=== PATIENT | male | born 1940 | race Caucasian/White ===

== ENCOUNTER 2021-10-10 08:33 | Inpatient (IN) | payer MEDICARE, BC, SELFPAY ==
[2021-10-10] VITALS (11 sets, daily range): BP systolic 70–110; BP diastolic 55–77; PULSE 76–102; RESP 14–24; TEMP 36.1–36.6; O2SAT 96–100; BMI 29.2
--- NOTE | ~2021-10-10 | CT_ITS ---
EXAMINATION: CT brain wo con DATE: 10/10/2021 09:15 INDICATION: Status post fall. Headache. TECHNIQUE: Computed tomography (CT) of the head was performed without intravenous contrast. The dose- length product was 681.00 mGy-cm. Automated exposure control and iterative reconstruction technique w ere employed. COMPARISON: None FINDINGS: Generalized atrophy. There are scattered moderate periventricular and subcortical white mat ter changes, most likely related to small vessel ischemic disease (microangiopathy). No ventriculomeg dann or midline shift. Basilar cisterns are patent. No acute intracranial hemorrhage, infarction, mass or mass effect. There is intracranial atherosclerosis. Paranasal sinuses and mastoids are pneumatize d. IMPRESSION: 1. No acute intracranial abnormality. 2: Chronic age-related findings. Reviewed, dictated and finalized at location A. RBOARD MACHINE OPERATOR
--- NOTE | ~2021-10-10 | US_ITS ---
EXAMINATION:US venous doppler LE BI INDICATION:Swollen legs with redness and tenderness TECHNIQUE: Multiple grayscale, color flow and Doppler images of the right and left lower extremity de ep venous systems were obtained and reviewed. COMPARISON:No prior studies for comparison. FINDINGS: The common femoral, superficial femoral and popliteal veins demonstrate normal respiratory variation, augmentation and compressibility. Color flow is also seen within the posterior tibial, pe roneal, greater saphenous and profunda veins. IMPRESSION: 1: No lower extremity deep venous thrombosis. Reviewed, dictated and finalized at location A. T MAKER
--- NOTE | ~2021-10-10 | XR_ITS ---
XR chest 2V 10/10/2021 09:02 Indication: Weakness and dyspnea Procedure: 2 view chest Comparison: 07/06/2009 Findings: Cardiomegaly. Large hiatal hernia. No focal air space disease, pulmonary edema, pleural eff usion or suspected pneumothorax. There is a cerclage wire transfixing the left mid clavicle with heal ed fracture. Impression: 1: No acute cardiopulmonary disease. 2: Cardiomegaly. Reviewed, dictated and finalized at location A. PICKER Impression: 1: No acute cardiopulmonary disease. 2: Cardiomegaly.
--- NOTE | ~2021-10-10 | CT_ITS ---
EXAMINATION: CT abdomen pelvis wo con DATE: 10/10/2021 11:51 INDICATION: Leukocytosis. Elevated lactic acid. Weakness. Loss of appetite. TECHNIQUE: Computed tomography (CT) of the abdomen and pelvis was performed without intravenous contr ast. The dose-length product was 867.34 mGy-cm. Automated exposure control and iterative reconstructi on technique were employed. COMPARISON: None. FINDINGS: There is dependent atelectasis. Cardiomegaly. There is a large hiatal hernia. No significan t pleural or pericardial effusion. There is atherosclerosis of the aorta without aneurysm. There are pancreatic calcifications, consistent with chronic pancreatitis. No lymphadenopathy. Status post chol ecystectomy. The liver, spleen, adrenal glands and kidneys are unremarkable. Nonobstructive bowel gas pattern. Col onic diverticulosis without evidence for diverticulitis. Normal appendix. No abnormal free fluid or f ree air. Enlarged prostate gland. Moderate lumbar spondylosis. IMPRESSION: 1. No acute abdominal abnormality. 2: Chronic pancreatitis. 3: Large hiatal hernia. 4: Enlarged prostate gland. Reviewed, dictated and finalized at location A. DING DISMANTLER
--- NOTE | 2021-10-10 08:46 | ECG_ITS ---
Measurements Intervals [place] Rate: 80 P: AR: 0 QRS: 50 QRSD: 166 T: 15 QT: 391 QTc: 453 Interpretive Statements ATRIAL FIBRILLATION RIGHT BUNDLE BRANCH BLOCK ABNORMAL ECG Electronically Signed On 10-10-2021 18:06:55 FURNACE CONVERTER by Florian Kang D.O.
[2021-10-10] MEDS: SODIUM CHLORIDE 0.9% IV 500 ML 999 ML IV CONT (09:18)
--- NOTE | 2021-10-10 09:37 | PC.NURSE ---
patient asked for Urine sample, will attempt again. Patient states that he has not had any fluids for over 24 hours and declines straight cath.
[2021-10-10 09:40] LABS: Basophils Percent Auto 0.1 % (0.2-1.2); Eosinophils Percent Auto 0.1 % (0-4.4); Hematocrit 39.5 % (42.0-52.0); Hemoglobin 13.2 g/dL (14.0-18.0); Immature Granulocyte Absolute 0.15 K/mm3 (0.00-0.031); Immature Granulocyte Percent A 0.9 % (0-0.5); Lymphocytes Absolute Auto 0.36 K/mm3 (0.9-3.2); Lymphocytes Percent Auto 2.1 % (18.3-44.2); Mean Corpuscular HGB Conc 33.4 g/dl (32-36); Mean Corpuscular Volume 92.7 fl (80-100); Mean Platelet Volume 10.5 fl (7.4-10.4); Monocytes Absolute Auto 0.7 K/mm3 (0.1-0.6); Monocytes Percent Auto 4.3 % (2.6-8.5); Neutrophils Absolute Auto 15.9 K/mm3 (1.3-6.7); Neutrophils Percent Auto 92.5 % (45.5-73.1); Platelet Count Result 133 k/mm3 (150-375); Red Blood Count 4.26 M/mm3 (4.6-6.20); Red Cell Distribution Width 14.6 % (11.5-14.5); White Blood Count 17.1 K/mm3 (4.5-10.0)
[2021-10-10 09:47] LABS: Alanine Aminotransferase 20 U/L (4-50); Albumin Level 3.4 g/dL (3.5-5.1); Alkaline Phosphatase 81 U/L (38-126); Anion Gap 7 mmol/L (8-16); Aspartate Amino Transferase 29 U/L (17-59); Bilirubin,Total 1.9 mg/dL (0.2-1.3); Blood Urea Nitrogen 24 mg/dL (9-20); Calcium 10.3 mg/dL (8.4-10.2); Carbon Dioxide 25 mmol/L (22-30); Chloride 105 mmol/L (98-107); Estimated CRCL calculation 34 ml/min; Estimated Glomerular Filt Rate 36; Glucose 241 mg/dL (65-110); Potassium 4.5 mmol/L (3.4-5.0); Sodium 137 mmol/L (137-145)
[2021-10-10 09:50] LABS: INR 2.8; Prothrombin Time 29.1 Seconds (11.1-14.7)
[2021-10-10 09:51] LABS: Partial Thromboplastin Time 45.8 SECONDS (22.3-36.8)
[2021-10-10 09:55] LABS: NT Pro B Type Natriuretic Pept 2780 pg/mL (5-100)
[2021-10-10 09:58] LABS: Troponin I < 0.012 ng/mL (0.000-0.034)
[2021-10-10] MEDS: SODIUM CHLORIDE 0.9% IV 1,000 ML 999 ML IV CONT (10:18)
[2021-10-10 10:20] LABS: Lactic Acid Reflex 3.5 mmol/L (0.7-2.1)
[2021-10-10 11:09] LABS: Add Urine Microscopic? YES; Appearance Urine Clear (Clear); Bilirubin Urine Negative (Negative); Blood Urine 1+ (Negative); Color Urine Amber (Yellow); Glucose Urine UA 1+ mg/dL (Negative); Ketones Urine Trace mg/dL (Negative); Leukocyte Esterase Ur Negative LEU/UL (Negative); Mucus Urine Rare /lpf; Nitrate Urine Negative (Negative); Protein Urine Negative (Negative); RBC Urine 0-2 /hpf (0-2); Specific Grav Ur 1.018 (1.001-1.035); Squamous Epithelial Cell Urine Rare /hpf (Few)
--- NOTE | 2021-10-10 11:18 | ED.WEAKNESS ---
HPI - Weakness General Chief complaint: Weakness Stated complaint: gen. weakness/mult falls since yesterday Time Seen by Provider: 10/10/21 08:40 Source: patient History of Present Illness HPI Narrative: Patient presents with weakness and falls. Ports symptoms been present for the past 1 to 2 days and appear to be getting worse reports he has not had much of an appetite has not been eating or drinking either is concerned about the symptoms so he came to the ER for evaluation. Denying any focal areas of pain such as headache, chest pain or abdominal pain. Denies any cough or shortness of renard, denies any extremity pain. Denies any nausea or vomiting or diarrhea. He denies any urinary symptoms. Related Data Allergies Allergy/AdvReac Type Severity Reaction Status Date / Time No Known Drug Allergies Allergy Verified 10/10/21 08:49 Review of Systems Review of Systems: CONSTITUTIONAL: Denies fever, chills, or sweats. EYES: Denies visual changes, redness, or discharge. ENT: Denies rhinorrhea, congestion, sore throat, or otalgia. CARDIOVASCULAR: Denies chest pain, palpitations, or edema. RESPIRATORY: Denies cough or dyspnea. GASTROINTESTINAL: Denies abdominal pain, nausea, vomiting, or diarrhea. GENITOURINARY: Denies dysuria or hematuria. SKIN: Denies rash or itching. MUSCULOSKELETAL: Denies back pain, joint pain, or myalgia. NEUROLOGIC: Denies headache, numbness, dizziness, or focal weakness. PSYCHIATRIC: Denies anxiety or depression. All systems reviewed & are unremarkable except as noted in HPI and below [facility] Surgical History Surgical History (Updated 10/10/21 @ 12:55 by Xavier Duke MD) History of total right knee replacement Social History Social History (Updated 10/10/21 @ 12:56 by Xavier Duke MD) Social History: Lives alone. Retired from [employer]. Full Code. Living arrangements: alone Course Reevaluation(s) Reevaluation #1: Patient is resting comfortably blood pressure is improving heart rate improved. Primary concern is for sepsis however there is no clear source of infection patient started broad-spectrum antibiotics. Discussed hospitalist team will admit for further evaluation. Patient is comfortable with inpatient plan. Date: 10/10/21 Time: 11:48 Vital Signs Vital signs: Vital Signs Temperature 36.6 C 10/10/21 08:32 Pulse Rate 102 H 10/10/21 08:32 Respiratory Rate 20 10/10/21 08:32 Blood Pressure 82/68 L 10/10/21 08:32 Pulse Oximetry 100 10/10/21 08:32 Temperature 36.6 C 10/10/21 08:32 Pulse Rate 91 10/10/21 12:44 Respiratory Rate 17 10/10/21 12:44 Blood Pressure 110/75 10/10/21 12:44 Pulse Oximetry 98 10/10/21 12:44 MDM - Weakness MDM Narrative Medical decision making narrative: H&P as above, vss, pt looks clinically well, exam reassuring, labs with leukocytosis elevated lactate and elevation in creatinine, img CT head and chest x-ray were clinically unremarkable CT of the abdomen ordered request of the hospitalist team, patient was started on Zosyn for broad-spectrum antibiotics. Patient not describe respiratory infectious symptoms denies abdominal pain and UA is clear. Given his lab abnormalities and initial hypotension on presentation he would benefit from further evaluation and monitoring. Patient accepted by the hospitalist team. Patient is comfortable inpatient plan. Lab Data Result diagrams: 10/10/21 09:21 10/10/21 09:21 Labs: Lab Results 10/10/21 10/10/21 10/10/21 Range/Units 09:21 09:21 09:21 WBC 17.1 H (4.5-10.0) K/mm3 RBC 4.26 L (4.6-6.20) M/mm3 Hgb 13.2 L (14.0-18.0) g/dL Hct 39.5 L (42.0-52.0) % MCV 92.7 (80-100) fl MCH 31.0 (26-34) pg MCHC 33.4 (32-36) g/dl RDW 14.6 H (11.5-14.5) % Plt Count 133 L (150-375) k/mm3 MPV 10.5 H (7.4-10.4) fl Immature Gran % (Auto) 0.9 H (0-0.5) % Neut % (Auto) 92.5 H (45.5-73.1) % Lymph % (Auto) 2
--- NOTE | 2021-10-10 12:02 | PM.IMHP ---
H&P: HPI History of Present Illness Date/Time: 10/10/21 12:02 Chief Complaint: Falling at home Narrative: This 81-year-old gentleman was in his usual state of health until last night, October 09. When he would try to get up he would fall. He felt very fatigued. He fell multiple times. He denied injury or loss of consciousness or dizziness. He said his legs feel weak. He denied fevers chills or sweats. He has noted some redness in his left lower leg compared to his right leg during the past few days. He was waiting for the winter weather to subside prior to venturing to his doctor. He had similar problems in the past with the right leg. He saw branch operations specialist and with wound care and antibiotics it resolved. He notes that he has bad teeth and has always been a fairly light eater. He has lost 2 to 5 lb recently. No pain with chewing. No facial swelling. No tender gums. No difficulty opening his mouth her sickness tongue out. In August 2021 he had an encounter with a previously female for oral sex. He states that he bled from his penile shaft for a few weeks after the encounter. I think she circumcised me. He denied dysuria or hematuria. However he did have sensitivity and pain when touching the penis or when it rubbed against his underwear for approximately 1 month. There is now a dark spot on the left side of the penile serra. He gets his medications from [facility]. He says he takes 1 medicine twice daily for his legs, to medicines daily for blood pressure, and Xarelto daily for atrial fibrillation. He denies any prior history of type 2 diabetes or kidney disease, but was told several years ago that he was prediabetic. Review of Systems Review of Systems: All systems reviewed & are unremarkable except as noted in HPI and below [facility] Past Medical History Medical History (Updated 10/10/21 @ 17:15 by Xavier Duke MD) Fracture, clavicle closed, shaft age 13 with ORIF Paroxysmal atrial fibrillation Type 2 diabetes mellitus with hyperglycemia Surgical History Surgical History (Updated 10/10/21 @ 17:17 by Xavier Duke MD) H/O cardiac catheterization 1998 negative ([place]) History of total right knee replacement Hx laparoscopic cholecystectomy 2008 Family History Family History (Updated 10/10/21 @ 17:18 by Xavier Duke MD) Father Acute myocardial infarction Mother Diabetes mellitus Social History Social History (Updated 10/10/21 @ 17:20 by Xavier Duke MD) Social History: Lives alone. Retired from [employer]. Full Code. Smoking packs per day: 1 Smoking cigarettes per day: 20.0 Years smoked: 30 Smoking pack-years: 30.00 Smoking status: Former smoker Alcohol intake: former Alcohol use details: quit in 02/2021, was 2-4 beers per day Substance use: never Living arrangements: alone Spiritual care concerns: No Meds Home Medications and Allergies Allergies Allergy/AdvReac Type Severity Reaction Status Date / Time No Known Drug Allergies Allergy Verified 10/10/21 08:49 Vital Signs Vital Signs - 24 hr 10/10/21 08:32 10/10/21 08:50 10/10/21 09:14 Temperature 98 F Pulse Rate 102 H 91 82 Respiratory Rate 20 20 Blood Pressure 82/68 L 70/57 L Pulse Oximetry 100 100 10/10/21 09:33 10/10/21 11:00 Temperature Pulse Rate 86 76 Respiratory Rate 21 H 24 H Blood Pressure 96/77 L 101/72 Pulse Oximetry 98 99 Exam Narrative: HEENT: PERRL, sclerae nonicteric, pharyngeal mucosa pink and intact NECK: No JVD, adenopathy, or thyromegaly CHEST: Clear to auscultation. Normal effort. HEART: NL S1/S2, regular, no murmur ABDOMEN: BS+, protuberant but soft, nontender, no mass, no bruits EXTREMITIES: 2 TO 3+ NONPITTING EDEMA OF THE DISTAL LEG AND ANKLE AND FOOT WITH CHRONIC VENOUS STASIS CHANGES BILATERALLY. ON THE LEFT THERE ARE 2 OPEN AREAS ON THE ANTERIOR LEG MID TO DISTAL APPROXIMATELY DIME DIAMETER
[2021-10-10 12:11] LABS: SARS-CoV-2 RNA PCR Negative
[2021-10-10 13:13] LABS: Reflex Lactic Acid Yes or No Add Lactic
[2021-10-10 13:39] LABS: Lactic Acid 2.9 mmol/L (0.7-2.1)
--- NOTE | 2021-10-10 14:52 | ADMGEN ---
This patient, Scarlet Herbert, was admitted to Medical Room 342-01. Patient/family oriented to hospital policies and general routines including ID bracelet, bed and alarms, visiting hours, pain management, procedures, bathroom and other care routines, personal items, smoking policy, room service/diet, and visiting hours. Information on how to activate the Rapid Response Team has been discussed. Patient/Family are encouraged to report perceived risks to care and to ask questions if they do not understand what they are told or what they should do.
[2021-10-10] MEDS: SODIUM CHLORIDE 0.9% IV 1,000 ML 125 ML IV CONT (15:25)
[2021-10-10 16:47] LABS: Glucose Point of Care 247 mg/dl (65-105)
[2021-10-10] MEDS: INSULIN ASPART (*BKC) 100 UNITS/ML SUB-Q ×2 (17:45)
[2021-10-10] MEDS: RIVAROXABAN 15 MG TABLET PO (17:47)
[2021-10-10 20:20] LABS: Glucose Point of Care 158 mg/dl (65-105)
[2021-10-10] MEDS: INSULIN GLARGINE (*BKC) 100 UNITS/ML 25 UNITS SUB-Q (20:42)
[2021-10-11] MEDS: SODIUM CHLORIDE 0.9% IV 1,000 ML 125 ML IV CONT (04:12)
[2021-10-11 06:00] VITALS: BP 92/66; PULSE 53; RESP 18; TEMP 36; O2SAT 99
[2021-10-11 06:08] LABS: Hematocrit 37.5 % (42.0-52.0); Hemoglobin 12.3 g/dL (14.0-18.0); Immature Reticulocyte Fraction 17.8 % (3.0-15.9); Mean Corpuscular HGB Conc 32.8 g/dl (32-36); Mean Corpuscular Hemoglobin 31.3 pg (26-34); Mean Corpuscular Volume 95.4 fl (80-100); Mean Platelet Volume 10.8 fl (7.4-10.4); Platelet Count Result 117 k/mm3 (150-375); Red Blood Count 3.93 M/mm3 (4.6-6.20); Red Cell Distribution Width 14.8 % (11.5-14.5); Reticulocyte Hemoglobin Conten 36.8 pg (28.2-35.7); Reticulocyte Percent 2.03 % (0.7-4.3); Reticulocytes Absolute 0.08 B/L (32.2-175.7); White Blood Count 10.6 K/mm3 (4.5-10.0)
[2021-10-11 06:22] LABS: Hemoglobin A1C 7.3 % (<5.7)
[2021-10-11 06:27] LABS: Alanine Aminotransferase 19 U/L (4-50); Alkaline Phosphatase 69 U/L (38-126); Anion Gap 3 mmol/L (8-16); Aspartate Amino Transferase 37 U/L (17-59); Blood Urea Nitrogen 25 mg/dL (9-20); Calcium 9.7 mg/dL (8.4-10.2); Carbon Dioxide 25 mmol/L (22-30); Chloride 109 mmol/L (98-107); Cholesterol 60 mg/dL (0-200); Estimated CRCL calculation 40 ml/min; Estimated Glomerular Filt Rate 53; Glucose 102 mg/dL (65-110); HDL Direct 21 mg/dL; Magnesium 1.7 mg/dL (1.6-2.3); Phosphorus 2.3 mg/dL (2.5-4.5); Potassium 3.6 mmol/L (3.4-5.0); Sodium 137 mmol/L (137-145); Triglycerides 58 mg/dL (<150)
[2021-10-11 06:31] LABS: Lactic Acid Reflex 1.1 mmol/L (0.7-2.1)
[2021-10-11 06:37] LABS: Iron 37 ug/dL (49-181)
[2021-10-11 06:46] LABS: Percent Iron Saturation 18 % (20-50)
[2021-10-11 07:06] LABS: Thyroid Stimulating Hormone Reflex 0.329 uIU/mL (0.465-4.68)
[2021-10-11 07:14] LABS: LDL Cholesterol Direct < 30 mg/dL
[2021-10-11 07:31] LABS: Folic Acid 3.2 ng/mL (2.76->20)
[2021-10-11 08:05] LABS: Glucose Point of Care 92 mg/dl (65-105)
[2021-10-11] MEDS: POTASSIUM CHLORIDE 20 MEQ TABLET 40 MEQ PO (08:32)
[2021-10-11 08:46] LABS: Free T4 Free Thyroxine Reflex 1.41 ng/dL (0.78-2.19)
[2021-10-11 09:07] LABS: HIV 1/2 Ab P24 Ag Result Negative (Negative); Hepatitis B Surface Antigen Negative (Negative)
[2021-10-11 09:08] LABS: HAV RESULT Negative (Negative)
[2021-10-11 10:27] LABS: Total Triiodothyronine (T3) 0.62 NG/ML (0.97-1.69)
[2021-10-11 12:01] LABS: Glucose Point of Care 118 mg/dl (65-105)
--- NOTE | 2021-10-11 12:59 | P.PNIM_ITS ---
Progress Note: A&P Assessment and Plan (1) Cellulitis of leg without foot, left: Code(s): L03.116 - Cellulitis of left lower limb Status: Acute Assessment and Plan: * IV cefazolin * Wound care, including leg elevation * 2/6 Encouraged f/u at wound care center (2) Venous stasis ulcer of left lower leg with edema of left lower leg: Code(s): I83.029 - Varicose veins of left lower extremity with ulcer of unspecified site; I83.892 - Varicose veins of left lower extremity with other complications; L97.929 - Non-pressure chronic ulcer of unspecified part of left lower leg with unspecified severity; R60.9 - Edema, unspecified Status: Acute Assessment and Plan: * Likely source of infection * History of similar issues in right lower extremity * Wound care consult (3) Leukocytosis (leucocytosis): Qualifiers: Leukocytosis type: unspecified Qualified Code(s): D72.829 - Elevated white blood cell count, unspecified Code(s): D72.829 - Elevated white blood cell count, unspecified Status: Acute Assessment and Plan: * Due to sepsis * Resolving (4) Hypotension: Qualifiers: Hypotension type: unspecified hypotension type Qualified Code(s): I95.9 - Hypotension, unspecified Code(s): I95.9 - Hypotension, unspecified Status: Acute Assessment and Plan: * Due to sepsis * Resolving (5) KEV (acute kidney injury): Code(s): N17.9 - Acute kidney failure, unspecified Status: Acute Assessment and Plan: * Likely due to sepsis * Urinalysis is unremarkable * CT abdomen pelvis reveals no hydronephrosis in spite of prostatomegaly * 2/ creatinine 1.8, 2/6 1.3 (6) Type 2 diabetes mellitus with hyperglycemia: Qualifiers: Diabetes mellitus jail insulin use: unspecified long chain beamer insulin use status Qualified Code(s): E11.65 - Type 2 diabetes mellitus with hyperglycemia Code(s): E11.65 - Type 2 diabetes mellitus with hyperglycemia Status: Acute Assessment and Plan: * Prior hx of prediabetes * Basal, pre meal, and sliding scale insulin * A1c 7.2 * 2/5 Lantus 25 units q.h.s. with 5 units NovoLog TID AC * 2/6 FBS 102, dereased Lantus to 20 U QHS, Novolic SSI TID AC, d/c'ed premeal [id number] * Transition to PO meds (metformin or empagliflozin) prior to discharge (7) Penile lesion: Code(s): N48.9 - Disorder of penis, unspecified Status: Acute Assessment and Plan: * Healing lesion left serra with eschar * Likely due to traumatic * In light of recent history, exclude STD * 2/6 HIV 1/2 negative (8) Anemia: Qualifiers: Anemia type: unspecified type Qualified Code(s): D64.9 - Anemia, unspecified Code(s): D64.9 - Anemia, unspecified Status: Acute Assessment and Plan: * Normochromic normocytic * Iron parameters c/w Anemic of Chronic Disease * B12 and folic acid WNL (9) Hyperbilirubinemia: Code(s): E80.6 - Other disorders of bilirubin metabolism Status: Acute Assessment and Plan: * DDX: reactive secondary to sepsis vs congenital hyperbilirubinemia * Hepatic lesion unlikely in light of negative CT A/P (10) Hypercalcemia: Code(s): E83.52 - Hypercalcemia Status: Acute Assessment and Plan: * Mild and resolved with hydration * May be simply due to hemoconcentration * Consider primary or secondary hyperparathyroidism * Paraneoplastic syndrome clinically unlikely * In the setting of anemi
--- NOTE | 2021-10-11 12:59 | PM.IMPN ---
Progress Note: A&P Assessment and Plan (1) Cellulitis of leg without foot, left: Code(s): L03.116 - Cellulitis of left lower limb Status: Acute Assessment and Plan: IV cefazolin Wound care, including leg elevation 2/6 Encouraged f/u at wound care center (2) Venous stasis ulcer of left lower leg with edema of left lower leg: Code(s): I83.029 - Varicose veins of left lower extremity with ulcer of unspecified site; I83.892 - Varicose veins of left lower extremity with other complications; L97.929 - Non-pressure chronic ulcer of unspecified part of left lower leg with unspecified severity; R60.9 - Edema, unspecified Status: Acute Assessment and Plan: Likely source of infection History of similar issues in right lower extremity Wound care consult (3) Leukocytosis (leucocytosis): Qualifiers: Leukocytosis type: unspecified Qualified Code(s): D72.829 - Elevated white blood cell count, unspecified Code(s): D72.829 - Elevated white blood cell count, unspecified Status: Acute Assessment and Plan: Due to sepsis Resolving (4) Hypotension: Qualifiers: Hypotension type: unspecified hypotension type Qualified Code(s): I95.9 - Hypotension, unspecified Code(s): I95.9 - Hypotension, unspecified Status: Acute Assessment and Plan: Due to sepsis Resolving (5) KEV (acute kidney injury): Code(s): N17.9 - Acute kidney failure, unspecified Status: Acute Assessment and Plan: Likely due to sepsis Urinalysis is unremarkable CT abdomen pelvis reveals no hydronephrosis in spite of prostatomegaly 2/5 creatinine 1.8, 2/6 1.3 (6) Type 2 diabetes mellitus with hyperglycemia: Qualifiers: Diabetes mellitus fdc insulin use: unspecified emt intermediate insulin use status Qualified Code(s): E11.65 - Type 2 diabetes mellitus with hyperglycemia Code(s): E11.65 - Type 2 diabetes mellitus with hyperglycemia Status: Acute Assessment and Plan: Prior hx of prediabetes Basal, pre meal, and sliding scale insulin A1c 7.2 2/5 Lantus 25 units q.h.s. with 5 units NovoLog TID AC 2/6 FBS 102, dereased Lantus to 20 U QHS, Novolic SSI TID AC, d/c'ed premeal [id number] Transition to PO meds (metformin or empagliflozin) prior to discharge (7) Penile lesion: Code(s): N48.9 - Disorder of penis, unspecified Status: Acute Assessment and Plan: Healing lesion left serra with eschar Likely due to traumatic In light of recent history, exclude STD 2/ HIV 1/2 negative (8) Anemia: Qualifiers: Anemia type: unspecified type Qualified Code(s): D64.9 - Anemia, unspecified Code(s): D64.9 - Anemia, unspecified Status: Acute Assessment and Plan: Normochromic normocytic Iron parameters c/w Anemic of Chronic Disease B12 and folic acid WNL (9) Hyperbilirubinemia: Code(s): E80.6 - Other disorders of bilirubin metabolism Status: Acute Assessment and Plan: DDX: reactive secondary to sepsis vs congenital hyperbilirubinemia Hepatic lesion unlikely in light of negative CT A/P (10) Hypercalcemia: Code(s): E83.52 - Hypercalcemia Status: Acute Assessment and Plan: Mild and resolved with hydration May be simply due to hemoconcentration Consider primary or secondary hyperparathyroidism Paraneoplastic syndrome clinically unlikely In the setting of anemia and elevated creatinine multiple myeloma must be considered PTH pending (11) Elevated lactic acid level: Code(s): R79.89 - Other specified abnormal findings of blood chemistry Status: Acute Assessment and Plan: Due to sepsis Resolved (12) Thrombocytopenia: Code(s): D69.6 - Thrombocytopenia, unspecified Status: Acute Assessment and Plan: Likely due to sepsis but cannot rule out chronic ITP 10/10 133, 2 1
[2021-10-11] MEDS: SODIUM CHLORIDE 0.9% IV 1,000 ML 100 ML IV CONT (13:24)
[2021-10-11 13:51] VITALS: BP 97/70; PULSE 85; RESP 16; TEMP 36.5; O2SAT 97
[2021-10-11 16:37] LABS: Glucose Point of Care 143 mg/dl (65-105)
[2021-10-11] MEDS: RIVAROXABAN 20 MG TABLET PO (16:53)
[2021-10-11 18:12] LABS: IFOB Positive Control Positive; Immunochemical Fecal Occult Bl Negative (N)
[2021-10-11 20:00] VITALS: PULSE 85; RESP 16; O2SAT 97
[2021-10-11] MEDS: INSULIN GLARGINE (*BKC) 100 UNITS/ML 20 UNITS SUB-Q (20:30)
[2021-10-11 20:41] LABS: Glucose Point of Care 132 mg/dl (65-105)
[2021-10-11 21:50] VITALS: PULSE 73; O2SAT 97
[2021-10-11 22:00] VITALS: BP 108/80; PULSE 72; RESP 18; TEMP 36.5; O2SAT 99
--- NOTE | 2021-10-12 | ECHO_ITS ---
Patient Info Name: Scarlet Herbert Age: 81 years : 1940 Gender: Male Ht: 70 in Wt: 203 lbs BSA: 2.15 m2 HR: 74 bpm BP: 125 / 83 mmHg Heart Rhythm: Atrial Fibrillation Technical Quality: Fair Exam Date: 10/12/2021 12:19 PM Exam Location: [facility] Patient Status: Inpatient Admit Date: 10/11/2021 Staff Ordering Physician: Xavier Duke MD Freezing Machine Operator: Lbuna Dawkins RDCS Attending Provider: Xavier Duke MD Referring Physician: Srikanth PACHECO; Exam Type: CA echo dop with color flow Study Info Indications - cardiomegaly, edema, weakness Complete two-dimensional, color flow and Doppler transthoracic echocardiogram is performed. Summary 1. Complete two-dimensional, color flow and Doppler transthoracic echocardiogram is performed. 2. Normal left and right ventricular systolic function. 3. Severe biatrial dilation. 4. Mildly sclerotic aortic valve. 5. Atrial fibrillation. Left Ventricle Left ventricular chamber dimension is normal. Left ventricular systolic function is normal, estimated at Empty. There is moderate concentric increased left ventricular wall thickness. The left ventricular diastolic function is indeterminate. Right Ventricle Right ventricular chamber dimension is normal. Left Atria Left atrial chamber dimension is severely enlarged. Right Atria Right atrial chamber dimension is severely enlarged. Aortic Valve The aortic valve is trileaflet. There is mild aortic valve sclerosis. Pulmonic Valve The pulmonic valve is not well visualized. Mitral Valve The mitral valve has normal leaflets. Tricuspid Valve The tricuspid valve leaflets are normal. There is trace tricuspid valve regurgitation. Pericardium/Pleural The pericardium appears normal. Aorta The aortic root size at the sinus of Valsalva is normal. Left Ventricular Outflow Tract Name Value Normal LVOT 2D LVOT Diameter 2.04 cm LVOT Doppler LVOT Peak Gradient 3 mmHg LVOT Mean Gradient 1 mmHg LVOT VTI 15.66 cm LVOT VTI/AV VTI Ratio 0.64 LVOT Stroke Volume 51.18 ml LVOT CO 4.31 l/min LVOT CI 2.00 L/min/m2 Pulmonic Valve Name Value Normal RVOT Doppler RVOT Peak Gradient 2 mmHg PV Doppler PV Peak Gradient 4 mmHg Mitral Valve Name Value Normal MV Doppler MV Pe
--- NOTE | 2021-10-12 03:00 | PCRCNOTE ---
Patient refused apnea link stating he does not have any issues with sleep at night.
[2021-10-12 06:00] VITALS: BP 125/83; PULSE 74; RESP 18; TEMP 36.4; O2SAT 100
[2021-10-12 06:29] LABS: Hemoglobin 12.5 g/dL (14.0-18.0); Immature Platelet Fraction Pct 4.5 % (0.9-11.2); Mean Corpuscular HGB Conc 32.9 g/dl (32-36); Mean Corpuscular Hemoglobin 31.1 pg (26-34); Mean Corpuscular Volume 94.5 fl (80-100); Mean Platelet Volume 10.6 fl (7.4-10.4); Platelet Count Result 130 k/mm3 (150-375); Red Blood Count 4.02 M/mm3 (4.6-6.20); Red Cell Distribution Width 14.8 % (11.5-14.5)
[2021-10-12 06:38] LABS: Potassium 3.6 mmol/L (3.4-5.0)
[2021-10-12 06:47] LABS: Parathyroid Intact 118.2 pg/mL (7.5-53.5)
[2021-10-12 06:54] LABS: Anion Gap 7 mmol/L (8-16); Blood Urea Nitrogen 20 mg/dL (9-20); Calcium 9.7 mg/dL (8.4-10.2); Carbon Dioxide 21 mmol/L (22-30); Chloride 109 mmol/L (98-107); Estimated CRCL calculation 51 ml/min; Estimated Glomerular Filt Rate > 60; Glucose 90 mg/dL (65-110); Phosphorus 3.1 mg/dL (2.5-4.5); Sodium 137 mmol/L (137-145)
[2021-10-12 07:39] LABS: Glucose Point of Care 85 mg/dl (65-105)
[2021-10-12 07:45] LABS: Vitamin D 25 Hydroxy 13.9 ng/mL
--- NOTE | 2021-10-12 08:41 | PM.IMPN ---
Progress Note: A&P Assessment and Plan (1) Cellulitis of leg without foot, left: Code(s): L03.116 - Cellulitis of left lower limb Status: Acute Assessment and Plan: Continue IV cefazolin Wound care consulted Supportive care (2) Venous stasis ulcer of left lower leg with edema of left lower leg: Code(s): I83.029 - Varicose veins of left lower extremity with ulcer of unspecified site; I83.892 - Varicose veins of left lower extremity with other complications; L97.929 - Non-pressure chronic ulcer of unspecified part of left lower leg with unspecified severity; R60.9 - Edema, unspecified Status: Acute Assessment and Plan: Likely source of infection History of similar issues in right lower extremity Wound care consult (3) Leukocytosis (leucocytosis): Qualifiers: Leukocytosis type: unspecified Qualified Code(s): D72.829 - Elevated white blood cell count, unspecified Code(s): D72.829 - Elevated white blood cell count, unspecified Status: Acute Assessment and Plan: Due to sepsis (4) Hypotension: Qualifiers: Hypotension type: unspecified hypotension type Qualified Code(s): I95.9 - Hypotension, unspecified Code(s): I95.9 - Hypotension, unspecified Status: Acute Assessment and Plan: Due to sepsis Continue IV fluids and IV antibiotics Follow-up labs (5) KEV (acute kidney injury): Code(s): N17.9 - Acute kidney failure, unspecified Status: Acute Assessment and Plan: Likely due to sepsis Urinalysis is unremarkable CT abdomen pelvis reveals no hydronephrosis in spite of prostatomegaly (6) Type 2 diabetes mellitus with hyperglycemia: Qualifiers: Diabetes mellitus 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 with 5 units NovoLog TID AC (7) Penile lesion: Code(s): N48.9 - Disorder of penis, unspecified Status: Acute Assessment and Plan: Healing lesion Likely due to trauma In light of recent history, exclude STD (8) Anemia: Qualifiers: Anemia type: unspecified type Qualified Code(s): D64.9 - Anemia, unspecified Code(s): D64.9 - Anemia, unspecified Status: Acute Assessment and Plan: Normochromic normocytic Possible anemia of chronic kidney disease, although he has no known history of CKD Exclude blood loss and nutritional deficiency With elevated bilirubin consider also hemolysis (9) Hyperbilirubinemia: Code(s): E80.6 - Other disorders of bilirubin metabolism Status: Acute Assessment and Plan: DDX: reactive secondary to sepsis vs congenital hyperbilirubinemia vs hemolysis Hepatic lesion unlikely in light of negative CT A/P (10) Hypercalcemia: Code(s): E83.52 - Hypercalcemia Status: Acute Assessment and Plan: Ca wnl ? due to hemoconcentration Consider primary or secondary hyperparathyroidism, PTH-->elevated 118.2 In the setting of anemia and elevated creatinine multiple myeloma must be considered, will need follow up o/p (11) Elevated lactic acid level: Code(s): R79.89 - Other specified abnormal findings of blood chemistry Status: Acute Assessment and Plan: Due to sepsis IV antibiotics and IV fluids Follow-up lab (12) Thrombocytopenia: Code(s): D69.6 - Thrombocytopenia, unspecified Status: Acute Assessment and Plan: PLT 130 Likely due to sepsis but cannot rule out chronic ITP (13) Hypertension: Qualifiers: Hypertension type: unspecified Qualified Code(s): I10 - Essential (primary) hypertension Code(s): I10 - Es
[2021-10-12 11:40] LABS: Glucose Point of Care 92 mg/dl (65-105)
[2021-10-12] MEDS: SODIUM CHLORIDE 0.9% IV 1,000 ML 50 ML IV CONT (13:24)
[2021-10-12] MEDS: EUCERIN CREAM 120 GM JAR 1 APPLIC TOPICAL (13:25)
[2021-10-12 14:08] VITALS: BP 119/78; PULSE 87; RESP 20; TEMP 36.1; O2SAT 99
[2021-10-12 16:13] LABS: Glucose Point of Care 161 mg/dl (65-105)
[2021-10-12] MEDS: RIVAROXABAN 20 MG TABLET PO (17:19)
[2021-10-12] MEDS: INSULIN GLARGINE (*BKC) 100 UNITS/ML 20 UNITS SUB-Q (20:53)
[2021-10-12 21:16] LABS: Glucose Point of Care 132 mg/dl (65-105)
[2021-10-12 21:32] VITALS: BP 127/82; PULSE 95; RESP 18; TEMP 36.3; O2SAT 100
[2021-10-13] MEDS: KETOROLAC 30 MG/ML VIAL (*BKC) IV PUSH (01:59)
[2021-10-13] MEDS: HYDROmorphone HCL INJ (*CRX) 1 MG/ML SYR IV PUSH (02:00)
[2021-10-13 06:00] VITALS: BP 118/82; PULSE 59; RESP 16; TEMP 36.3; O2SAT 100
[2021-10-13 07:29] LABS: Hematocrit 33.1 % (42.0-52.0); Mean Corpuscular HGB Conc 33.2 g/dl (32-36); Mean Corpuscular Hemoglobin 30.9 pg (26-34); Mean Platelet Volume 9.9 fl (7.4-10.4); Platelet Count Result 109 k/mm3 (150-375); Red Blood Count 3.56 M/mm3 (4.6-6.20); Red Cell Distribution Width 14.8 % (11.5-14.5)
[2021-10-13 07:34] LABS: Glucose Point of Care 90 mg/dl (65-105)
[2021-10-13 07:36] LABS: Anion Gap 0 mmol/L (8-16); Blood Urea Nitrogen 16 mg/dL (9-20); Calcium 9.3 mg/dL (8.4-10.2); Carbon Dioxide 27 mmol/L (22-30); Chloride 111 mmol/L (98-107); Estimated CRCL calculation 56 ml/min; Estimated Glomerular Filt Rate > 60; Glucose 99 mg/dL (65-110); Potassium 3.7 mmol/L (3.4-5.0); Sodium 138 mmol/L (137-145)
[2021-10-13] MEDS: EUCERIN CREAM 120 GM JAR 1 APPLIC TOPICAL (08:11)
[2021-10-13 08:54] VITALS: BP 120/68; PULSE 64; RESP 16; TEMP 36.4; O2SAT 100
[2021-10-13 11:46] LABS: Glucose Point of Care 111 mg/dl (65-105)
[2021-10-13 12:00] VITALS: BP 109/77; PULSE 77; RESP 16; TEMP 36.8; O2SAT 98
--- NOTE | 2021-10-13 13:58 | PM.IMPN ---
Progress Note: A&P Assessment and Plan (1) Cellulitis of leg without foot, left: Code(s): L03.116 - Cellulitis of left lower limb Status: Acute Assessment and Plan: Continue IV cefazolin Wound care consulted Supportive care 10/13/21 13:58 10/13/2021 Interval history patient with left lower extremity status dermatitis now has cellulitis patient being treated with cefazolin IV states the wound is getting better not as red and swallen seen by wound nurse, blood culture no growth so far, and also has a acute on chronic kidney disease upon arrival serum creatinine was 1.8 and has trended down 0.9, most likely secondary to dehydration with poor p.o. intake, and will continue to monitor reassess tomorrow and further recommendation to follow. (2) Venous stasis ulcer of left lower leg with edema of left lower leg: Code(s): I83.029 - Varicose veins of left lower extremity with ulcer of unspecified site; I83.892 - Varicose veins of left lower extremity with other complications; L97.929 - Non-pressure chronic ulcer of unspecified part of left lower leg with unspecified severity; R60.9 - Edema, unspecified Status: Acute Assessment and Plan: Likely source of infection History of similar issues in right lower extremity Wound care consult (3) Leukocytosis (leucocytosis): Qualifiers: Leukocytosis type: unspecified Qualified Code(s): D72.829 - Elevated white blood cell count, unspecified Code(s): D72.829 - Elevated white blood cell count, unspecified Status: Acute Assessment and Plan: Due to sepsis (4) Hypotension: Qualifiers: Hypotension type: unspecified hypotension type Qualified Code(s): I95.9 - Hypotension, unspecified Code(s): I95.9 - Hypotension, unspecified Status: Acute Assessment and Plan: Due to sepsis Continue IV fluids and IV antibiotics Follow-up labs (5) KEV (acute kidney injury): Code(s): N17.9 - Acute kidney failure, unspecified Status: Acute Assessment and Plan: Likely due to sepsis Urinalysis is unremarkable CT abdomen pelvis reveals no hydronephrosis in spite of prostatomegaly (6) Type 2 diabetes mellitus with hyperglycemia: Qualifiers: Diabetes mellitus roasterman insulin use: unspecified roasterman insulin use status Qualified Code(s): E11.65 - Type 2 diabetes mellitus with hyperglycemia Code(s): E11.65 - Type 2 diabetes mellitus with hyperglycemia Status: Acute Assessment and Plan: Prior hx of prediabetes Basal, pre meal, and sliding scale insulin A1c 7.5 2/5 Lantus 25 units q.h.s. with 5 units NovoLog TID AC (7) Penile lesion: Code(s): N48.9 - Disorder of penis, unspecified Status: Acute Assessment and Plan: Healing lesion Likely due to trauma In light of recent history, exclude STD (8) Anemia: Qualifiers: Anemia type: unspecified type Qualified Code(s): D64.9 - Anemia, unspecified Code(s): D64.9 - Anemia, unspecified Status: Acute Assessment and Plan: Normochromic normocytic Possible anemia of chronic kidney disease, although he has no known history of CKD Exclude blood loss and nutritional deficiency With elevated bilirubin consider also hemolysis (9) Hyperbilirubinemia: Code(s): E80.6 - Other disorders of bilirubin metabolism Status: Acute Assessment and Plan: DDX: reactive secondary to sepsis vs congenital hyperbilirubinemia vs hemolysis Hepatic lesion unlikely in light of negative CT A/P (10) Hypercalcemia: Code(s): E83.52 - Hypercalcemia Status: Acute Assessment and Plan: Ca wnl ? due to hemoconcentration Consider primary or secondary hyperparathyroidism, PTH-->elevated 118.2 In the setting of anemia and elevated creatinine multiple myeloma must be considered, will need follow up o/p (11) Elevated lactic acid level: Code(s): R79
--- NOTE | 2021-10-13 14:57 | PC.NURSE ---
On 10/13/21, the student, Jann Francis, provided care and completed [facility] documentation on this patient. I have reviewed the student's documentation and agree with the findings.
[2021-10-13 16:41] LABS: Glucose Point of Care 152 mg/dl (65-105)
[2021-10-13] MEDS: RIVAROXABAN 20 MG TABLET PO (16:52)
[2021-10-13] MEDS: PREGABALIN (*CRX) 50 MG CAPSULE 200 MG PO (16:52)
[2021-10-13 20:56] LABS: Glucose Point of Care 139 mg/dl (65-105)
[2021-10-13] MEDS: INSULIN GLARGINE (*BKC) 100 UNITS/ML 20 UNITS SUB-Q (21:02)
[2021-10-13 21:57] VITALS: BP 107/86; PULSE 90; RESP 18; TEMP 35.9; O2SAT 99
[2021-10-13 23:20] LABS: Albumin 2.7 g/dL (3.8-4.8); Alpha 1 Globulin 0.4 g/dL (0.2-0.3); Alpha 2 Globulin 0.6 g/dL (0.5-0.9); Beta 1 Globulin 0.3 g/dL (0.4-0.6); Gamma Globulin 1.2 g/dL (0.8-1.7); Protein, Total 5.3 g/dL (6.1-8.1)
[2021-10-14 05:24] VITALS: BP 124/87; PULSE 68; RESP 18; TEMP 36.4; O2SAT 100
[2021-10-14 07:52] LABS: Glucose Point of Care 76 mg/dl (65-105)
[2021-10-14] MEDS: PREGABALIN (*CRX) 50 MG CAPSULE 200 MG PO (08:20)
[2021-10-14 08:21] VITALS: PULSE 68
[2021-10-14] MEDS: EUCERIN CREAM 120 GM JAR 1 APPLIC TOPICAL (08:21)
[2021-10-14] MEDS: FUROSEMIDE 20 MG TABLET PO (08:21)
[2021-10-14] MEDS: VALSARTAN 80 MG TABLET PO (08:21)
[2021-10-14] MEDS: CYANOCOBALAMIN 250 MCG TABLET PO (08:21)
[2021-10-14] MEDS: METOPROLOL SUCCINATE EXT REL 50 MG TABCR PO (08:21)
[2021-10-14] MEDS: hydroCHLOROthiazide 12.5 MG CAPSULE PO (08:21)
[2021-10-14] MEDS: FERROUS SULFATE 324 MG TABLET PO (08:21)
--- NOTE | 2021-10-14 09:50 | PM.DS ---
DS: Admitting Diagnosis Discharge Date 10/14/2021 Admitting Diagnosis Chief Complaint: Falling at home DS: Discharge Diagnosis Discharge Diagnosis (1) Cellulitis of leg without foot, left: Code(s): L03.116 - Cellulitis of left lower limb Status: Acute Assessment and Plan: Continue IV cefazolin Wound care consulted Supportive care 10/13/21 13:58 10/13/2021 Interval history patient with left lower extremity status dermatitis now has cellulitis patient being treated with cefazolin IV states the wound is getting better not as red and swallen seen by wound nurse, blood culture no growth so far, and also has a acute on chronic kidney disease upon arrival serum creatinine was 1.8 and has trended down 0.9, most likely secondary to dehydration with poor p.o. intake, and will continue to monitor reassess tomorrow and further recommendation to follow. (2) Venous stasis ulcer of left lower leg with edema of left lower leg: Code(s): I83.029 - Varicose veins of left lower extremity with ulcer of unspecified site; I83.892 - Varicose veins of left lower extremity with other complications; L97.929 - Non-pressure chronic ulcer of unspecified part of left lower leg with unspecified severity; R60.9 - Edema, unspecified Status: Acute Assessment and Plan: Likely source of infection History of similar issues in right lower extremity Wound care consult (3) Leukocytosis (leucocytosis): Qualifiers: Leukocytosis type: unspecified Qualified Code(s): D72.829 - Elevated white blood cell count, unspecified Code(s): D72.829 - Elevated white blood cell count, unspecified Status: Acute Assessment and Plan: Due to sepsis (4) Hypotension: Qualifiers: Hypotension type: unspecified hypotension type Qualified Code(s): I95.9 - Hypotension, unspecified Code(s): I95.9 - Hypotension, unspecified Status: Acute Assessment and Plan: Due to sepsis Continue IV fluids and IV antibiotics Follow-up labs (5) KEV (acute kidney injury): Code(s): N17.9 - Acute kidney failure, unspecified Status: Acute Assessment and Plan: Likely due to sepsis Urinalysis is unremarkable CT abdomen pelvis reveals no hydronephrosis in spite of prostatomegaly (6) Type 2 diabetes mellitus with hyperglycemia: Qualifiers: Diabetes mellitus exterminator helper insulin use: unspecified exterminator helper insulin use status Qualified Code(s): E11.65 - Type 2 diabetes mellitus with hyperglycemia Code(s): E11.65 - Type 2 diabetes mellitus with hyperglycemia Status: Acute Assessment and Plan: Prior hx of prediabetes Basal, pre meal, and sliding scale insulin A1c 7.5 2/5 Lantus 25 units q.h.s. with 5 units NovoLog TID AC (7) Penile lesion: Code(s): N48.9 - Disorder of penis, unspecified Status: Acute Assessment and Plan: Healing lesion Likely due to trauma In light of recent history, exclude STD (8) Anemia: Qualifiers: Anemia type: unspecified type Qualified Code(s): D64.9 - Anemia, unspecified Code(s): D64.9 - Anemia, unspecified Status: Acute Assessment and Plan: Normochromic normocytic Possible anemia of chronic kidney disease, although he has no known history of CKD Exclude blood loss and nutritional deficiency With elevated bilirubin consider also hemolysis (9) Hyperbilirubinemia: Code(s): E80.6 - Other disorders of bilirubin metabolism Status: Acute Assessment and Plan: DDX: reactive secondary to sepsis vs congenital hyperbilirubinemia vs hemolysis Hepatic lesion unlikely in light of negative CT A/P (10) Hypercalcemia: Code(s): E83.52 - Hypercalcemia Status: Acute Assessment and Plan: Ca wnl ? due to hemoconcentration Consider primary or secondary hyperparathyroidism, PTH-->elevated 118.2 In the setting of anemia and elevated creatinine mult
[2021-10-14 16:00] LABS: Treponema pallidum Ab FTA ABS Nonreactive (Nonreactive)
== END 2021-10-14 12:50 | disposition home health service (06) | DRG 871 ==
LOC: ANHED 12:11 → ANH3MED 12:44
PROVIDERS: Nurse Practitioner Adult Health; Admitting Provider Internal Medicine; Emergency Provider Emergency Medicine; PCP Family Medicine; Visit Provider Family Medicine
DX: A41.9 Sepsis, unspecified organism (principal); R65.21 Severe sepsis with septic shock; L03.116 Cellulitis of left lower limb; N17.9 Acute kidney failure, unspecified; Z20.822 Contact with and (suspected) exposure to COVID-19; I83.029 Varicose veins of left lower extremity with ulcer of unspecified site; I95.9 Hypotension, unspecified; E11.65 Type 2 diabetes mellitus with hyperglycemia; N48.9 Disorder of penis, unspecified; E80.6 Other disorders of bilirubin metabolism; D69.6 Thrombocytopenia, unspecified; R00.0 Tachycardia, unspecified; I48.0 Paroxysmal atrial fibrillation; Z79.01 Long term (current) use of anticoagulants; E83.52 Hypercalcemia; Z87.891 Personal history of nicotine dependence; E86.0 Dehydration; N18.9 Chronic kidney disease, unspecified; D63.1 Anemia in chronic kidney disease; I12.9 Hypertensive chronic kidney disease with stage 1 through stage 4 chronic kidney disease, or unspecified chronic kidney disease; E11.22 Type 2 diabetes mellitus with diabetic chronic kidney disease; Z79.4 Long term (current) use of insulin
CPT/HCPCS: 36415; 70450; 71046; 74176; 80048; 80053; 80061; 80069; 81001; 82274; 82306; 82607; 82746; 82948; 83036; 83540; 83550; 83605; 83735; 83880; 83970; 84100; 84155; 84165; 84439; 84443; 84480; 84484; 85025; 85027; 85046; 85055; 85610; 85730; 86695; 86696; 86703; 86709; 86780; 87040; 87340; 93005; 93306; 93970; 96361; 96365; 96366; 96367; 97110; 97116; 97162; 97165; 97530; 97535; 99285; A9270; C8929; C9803; G0378; G0432; J0690; J1170; J1815; J1885; J2543; J7030; J7040; U0003; U0005